=== PATIENT | female | born 1965 | race Caucasian/White ===

== ENCOUNTER 2018-11-07 10:02 | Emergency (ER) | payer SELFPAY ==
[2018-11-07] MEDS ORDERED: PROPOFOL 1,000 MG/100 ML INFUS..BTL IV ONE (10:18)
[2018-11-07] MEDS ORDERED: SUCCINYLCHOLINE CHLORIDE INJ 200 MG/10 ML VIAL IV ONE (10:22)
[2018-11-07] MEDS ORDERED: ETOMIDATE INJ/PF 20 MG/10 ML SDV IV ONE (10:22)
[2018-11-07] MEDS ORDERED: PROPOFOL 1,000 MG/100 ML INFUS..BTL IV PRN (10:23)
--- NOTE | 2018-11-07 11:04 | RADIOLOGY REPORT (SQ) ---
EXAM DESCRIPTION: CHEST SINGLE VIEW COMPLETED DATE/TIME: 11/07/2018 10:55 am REASON FOR STUDY: Post intubation COMPARISON: 2013 EXAM PARAMETERS: NUMBER OF VIEWS: One view TECHNIQUE: Single frontal radiograph of the chest. RADIATION DOSE: N/A LIMITATIONS: None. FINDINGS: TEMPORARY SUPPORT DEVICES:ETT in expected location. NG tube courses below the jered-diaphr agm in to the stomach. LUNGS AND PLEURA: No opacities. No masses. No effusions. No pneumothorax. MEDIASTINUM AND HILAR STRUCTURES: No masses. Contour normal. HEART AND VASCULAR STRUCTURES: Heart size normal. Normal vascularity. Aorta normal for age BONES: No acute findings. OTHER: No other significant finding. IMPRESSION: NO ACUTE RADIOGRAPHIC FINDING IN THE CHEST. SUPPORT DEVICE(S) IN EXPECTED LOCATIONS. TECHNICAL DOCUMENTATION: JOB ID: [id number] [employer]- All Rights Reserved Reading location - IP/workstation name: [email or web address]
[2018-11-07 11:26] LABS: ABSOLUTE BASOPHILS # (AUTO) 0.1 10^3/uL (0.0-0.2); ABSOLUTE EOSINOPHILS # (AUTO) 0.4 10^3/uL (0.0-0.6); ABSOLUTE LYMPHOCYTES (AUTO) 3.8 10^3/uL (0.5-4.7); ABSOLUTE NEUT (AUTO) 2.3 10^3/uL (1.7-8.2); EOSINOPHILS % (AUTO) 5.7 % (0-6); HEMOGLOBIN 15.4 g/dL (12.0-15.5); LYMPHOCYTES % (AUTO) 49.8 % (13-45); MEAN CORPUSCULAR HEMOGLOBIN 31.9 pg (27.0-33.4); MEAN CORPUSCULAR HGB CONC 33.4 g/dL (32.0-36.0); MEAN CORPUSCULAR VOLUME 96 fl (80-97); PLATELET COUNT 148 10^3/uL (150-450); RED BLOOD COUNT 4.81 10^6/uL (3.72-5.28); RED CELL DISTRIBUTION WIDTH 15.6 % (11.5-14.0); SEGMENTED NEUTROPHILS % (AUTO) 30.5 % (42-78); TOTAL CELLS COUNTED % (AUTO) 100 %; WHITE BLOOD COUNT 7.6 10^3/uL (4.0-10.5)
--- NOTE | 2018-11-07 11:27 | RADIOLOGY REPORT (SQ) ---
EXAM DESCRIPTION: CT HEAD WITHOUT COMPLETED DATE/TIME: 11/07/2018 11:15 am REASON FOR STUDY: Altered mental status COMPARISON: None. TECHNIQUE: Axial images acquired through the brain without intravenous contrast. Images reviewed wi th bone, brain and subdural windows. Additional sagittal and coronal reconstructions were generated. Images stored on PACS. All CT scanners at this facility use dose modulation, iterative reconstruction, and/or weight based d osing when appropriate to reduce radiation dose to as low as reasonably achievable (ALARA). [facility]: Dose Right [facility]: CareDose [facility]: Dose Right [facility]: Teradose 4D [facility]: [employer] RADIATION DOSE: CT Rad equipment meets quality standard of care and radiation dose reduction techniq ues were employed. CTDIvol: 53.2 mGy. DLP: 1097 mGy-cm. mGy. LIMITATIONS: None. FINDINGS: VENTRICLES: Normal size and contour. CEREBRUM: No masses. Diffuse subarachnoid hemorrhage throughout. There is an area of intra parenchy mal hemorrhage left insula. Measures 1 cm by 3 cm. No significant mass effect. No areas of low dens ity. CEREBELLUM: Diffuse subarachnoid hemorrhage. EXTRAAXIAL SPACES: Subarachnoid hemorrhage. ORBITS AND GLOBE: No intra- or extraconal masses. Normal contour of globe without masses. CALVARIUM: No fracture. PARANASAL SINUSES: No fluid or mucosal thickening. SOFT TISSUES: No mass or hematoma. OTHER: No other significant finding. IMPRESSION: Diffuse subarachnoid hemorrhage and parenchymal hemorrhage on the left. No mass effect. EVIDENCE OF ACUTE STROKE: NO. COMMENT: Pertinent findings on the imaging study reported as a CRITICAL RESULT to BASIA EVANS MD at11:17 on 11/07/2018. Category of Critical Result: Subarachnoid and parenchymal hemorrhage Quality ID # [id number]: Final reports with documentation of one or more dose reduction techniques (e.g., Au tomated exposure control, adjustment of the mA and/or kV according to patient size, use of iterative reconstruction technique) TECHNICAL DOCUMENTATION: JOB ID: [id number] [employer]- All Rights Reserved Reading location - IP/workstation name: [email or web address]
--- NOTE | 2018-11-07 11:28 | RADIOLOGY REPORT (SQ) ---
EXAM DESCRIPTION: CTA CHEST COMPLETED DATE/TIME: 11/07/2018 11:15 am REASON FOR STUDY: Intubated, difficulty oxygenating COMPARISON: Chest radiograph TECHNIQUE: CT scan of the chest performed using helical scanning technique with dynamic intravenous contrast injection. Images reviewed with lung, soft tissue and bone windows. Reconstructed coronal and sagittal MPR images reviewed. Additional 3 dimensional post-processing performed to develop Maximal Intensity Projection images (LA P). All images stored on PACS. All CT scanners at this facility use dose modulation, iterative reconstruction, and/or weight based d osing when appropriate to reduce radiation dose to as low as reasonably achievable (ALARA). [facility]: Dose Right [facility]: CareDose [facility]: Dose Right [facility]: Teradose 4D [facility]: [employer] CONTRAST TYPE AND DOSE: contrast/concentration: Isovue 350.00 mg/ml; Total Contrast Delivered: 90.0 ml; Total Saline Delivered: 110.0 ml Contrast bolus optimized for the pulmonary arteries. Not diagnostic for the aorta. RENAL FUNCTION: Emergent. Not performed. RADIATION DOSE: CT Rad equipment meets quality standard of care and radiation dose reduction techniq ues were employed. CTDIvol: 29.8 - 39.7 mGy. DLP: 1050 mGy-cm. . LIMITATIONS: None. FINDINGS: LUNGS AND PLEURA: Parenchymal opacities at both lung bases. Question aspiration complex. No pneumothorax. AORTA AND GREAT VESSELS: No aneurysm. Contrast bolus not optimized for the aorta. HEART: No pericardial effusion. No significant coronary artery calcifications. PULMONARY ARTERIES: No emboli visualized in the main pulmonary arteries or the segmental branches. HILAR AND MEDIASTINAL STRUCTURES: No identified masses or abnormal nodes. HARDWARE: ETT. NG tube. UPPER ABDOMEN: No significant findings. Limited exam. THYROID AND OTHER SOFT TISSUES: No masses. No adenopathy. BONES: No acute or significant finding. 3D MIPS: Confirm above findings. OTHER: No other significant finding. IMPRESSION: No pulmonary emboli. Parenchymal opacities at both lung bases. Question aspiration complex. COMMENT: Quality ID # [id number]: Final reports with documentation of one or more dose reduction techniques (e.g., Automated exposure control, adjustment of the mA and/or kV according to patient size, use of iterative reconstruction technique) TECHNICAL DOCUMENTATION: JOB ID: [id number] [employer]- All Rights Reserved Reading location - IP/workstation name: [email or web address]
[2018-11-07 11:33] LABS: ALANINE AMINOTRANSFERASE 51 U/L (9-52); ALBUMIN 4.6 g/dL (3.5-5.0); ALKALINE PHOSPHATASE 97 U/L (38-126); ANION GAP 13 (5-19); ASPARTATE AMINO TRANSFERASE 59 U/L (14-36); BILIRUBIN,DIRECT 0.3 mg/dL (0.0-0.4); BILIRUBIN,TOTAL 0.8 mg/dL (0.2-1.3); BLOOD UREA NITROGEN 17 mg/dL (7-20); CALCIUM 9.3 mg/dL (8.4-10.2); CARBON DIOXIDE 23 mmol/L (22-30); CHLORIDE 107 mmol/L (98-107); CREATINE KINASE 47 U/L (30-135); GLUCOSE 196 mg/dL (75-110); POTASSIUM 3.8 mmol/L (3.6-5.0); SODIUM 143.3 mmol/L (137-145); TOTAL PROTEIN 8.7 g/dL (6.3-8.2)
[2018-11-07] MEDS ORDERED: LEVOFLOXACIN 750 MG/D5W RTU 750 MG/150 ML RTUPB IV ONE (11:34)
[2018-11-07] MEDS ORDERED: NICARDIPINE HCL RTU, ISO-OS 20 MG/200 ML RTUINJ IV PRN (11:45)
[2018-11-07 11:49] LABS: TROPONIN I < 0.012 ng/mL
[2018-11-07 11:55] LABS: APPEARANCE,URINE CLEAR; BILIRUBIN,URINE NEGATIVE (NEGATIVE); COLOR,URINE STRAW; GLUCOSE, URINE 50 mg/dL (NEGATIVE); KETONES,URINE NEGATIVE (NEGATIVE); LEUKOCYTE ESTERASE,URINE NEGATIVE (NEGATIVE); NITRITE,URINE NEGATIVE (NEGATIVE); PROTEIN,URINE NEGATIVE (NEGATIVE); URINE SPECIFIC GRAVITY 1.039; UROBILINOGEN,URINE NEGATIVE mg/dL (<2.0)
[2018-11-07] MEDS ORDERED: LEVETIRACETAM 1000 MG/NACL-ISO 1,000 MG/100 ML RTUPB IV ONE (12:17)
[2018-11-07 13:11] VITALS: BP 112/65
--- NOTE | 2018-11-07 15:27 | ER Document Report ---
Entered by CHAVO MIXON SCRIBE 11/07/18 1031 Acting as scribe for:BASIA EVANS MD ED General - General Stated Complaint: ALTERED MENTAL STATUS Time Seen by Provider: 11/07/18 10:05 Primary Care Provider: MAULIK ANDERSEN MD [Primary Care Provider] - Follow up as needed Mode of Arrival: Medic Information source: Emergency Med Personnel Notes: Patient is a 53-year-old female with hypertension, lupus presents emergency department via EMS due to altered mental status. states he was drinking coffee with the patient when she proceeded to stand up and state " I don't feel right", fall over and proceeded to seize. states he caught the patient before she fell to the ground. No further history was obtained due to patient's mental status. EMS obtained a blood pressure 218/107. They administered 7.5 mg of Versed due to the patient's combativeness and inability to bag the patient. TRAVEL OUTSIDE OF THE [place] IN LAST 30 DAYS: No - Related Data Allergies/Adverse Reactions: Sulfa (Sulfonamide Antibiotics) Allergy (Verified 12/13/16 12:26) Past Medical History - General Information source: Emergency Med Personnel, [facility] Records - Social History Smoking Status: Current Every Day Smoker Cigarette use (# per day): Yes Family History: Reviewed & Not Pertinent - Past Medical History Cardiac Medical History: Reports: Hx Hypertension - STRESS INDUCED Musculoskeletal Medical History: Reports Hx Arthritis - HANDS, KNEES Psychiatric Medical History: Reports: Hx Depression Past Surgical History: Reports: Hx Section - Immunizations Hx Diphtheria, Pertussis, Tetanus Vaccination: Yes Review of Systems - Review of Systems -: Yes ROS unobtainable due to patient's medical condition Physical Exam - Vital signs Vitals: Resp 10 L 11/07/18 10:02 - Notes Notes: GENERAL: Moaning, continuously fights any kind of noxious stimuli, incoherent. HEAD: Normocephalic, atraumatic. EYES: Pupils reactive to light. Extraocular movements intact. ENT: Oral mucosa moist, tongue midline. NECK: Full range of motion. Supple. Trachea midline. LUNGS:Tachypneic. Clear to auscultation bilaterally, no wheezes, rales, or rhonchi. No respiratory distress. HEART: Regular rate and rhythm. No murmurs, gallops, or rubs. ABDOMEN: Soft,. Non-distended. Bowel sounds present in all 4 quadrants. EXTREMITIES: Moves all 4 extremities spontaneously. NEUROLOGICAL: Encephalopathic. Continuously fights any kind of noxious stimuli. Incoherent. PSYCH: Incoherent, encephalopathic. SKIN: Warm, dry. Course - Re-evaluation Re-evalutation: 11/07/18 15:07 Patient's oxygen saturations were in the 80% range. Were unable to get him abo ve 85%, due to the patient being quite combative and encephalopathic. Decision to do rapid sequence intubation was made. It was unsuccessful to adequately preoxygenated the patient, however after she received etomidate and succinylcholine, she was intubated with a Ramez blade laryngoscope and a 7.5 endotracheal tube. There was some blood and clots in the back of her throat and over the vocal cord region. The tongue was swollen some and appeared to have been bitten from her previous seizure. I was unable to identify any of the anatomy with a video laryngoscope so I switched to the Sloan blade. With direct laryngoscopy, I was able to identify what appeared to be the esophagus, but could not find the epiglottis or the vocal cords. I introduced the endotracheal tube just above the esophagus opening, and it slid forward easily and fog was seen coming up to. The stylette was removed, capnography was placed with good color change. Good bilateral breath sounds were heard. The endotracheal tube was secured, and then the patient was placed on a ventilator. The propofol drip was started. Once all this was stable, the patient was taken to the CT scanner. CT scan showed diffuse subarachnoid hemorrhage. There also appeared to be aspiration in the lower lung russell bilaterally. The patient's blood pressure settled down to about 155/93, at that point she was placed on a nicardipine drip to keep her pressures below 140 systolic. She was also given Keppra 1 g IV to prevent seizures, and Levaquin 750 mg IV for the aspiration. - Vital Signs Vital signs: Temp Pulse Resp BP Pulse Ox 18 112/65 94 11/07/18 12:41 11/07/18 12:41 11/07/18 12:54 - Laboratory Result Diagrams: 11/07/18 10:06 11/07/18 10:06 Laboratory results interpreted by me: 11/07/18 11/07/18 11/07/18 10:06 10:06 10:06 RDW 15.6 H Plt Count 148 L Seg Neutrophils % 30.5 L Lymphocytes % 49.8 H D-Dimer Creatinine 0.50 L Glucose 196 H Lactic Acid 2.6 H AST 59 H Total Protein 8.7 H Urine Glucose (UA) 11/07/18 11/07/18 10:06 11:33 RDW Plt Count Seg Neutrophils % Lymphocytes % D-Dimer 0.60 H Creatinine Glucose Lactic Acid AST Total Protein Urine Glucose (UA) 50 H - Diagnostic Test Radiology reviewed: Reports reviewed - Diffuse subarachnoid hemorrhage on CT of the head. CTA chest shows minimal opacities in both lung bases suggestive of aspiration. - EKG Interpretation by Me EKG shows normal: Sinus rhythm, [place], Intervals, QRS Complexes, ST-T Waves Rate: Normal - 87 Rhythm: NSR P Waves: LAE When compared to previous EKG there are: No significant change - Consults Dr. Jackson Time consulted: 11:39 Consulted provider: other - Will accept at [facility]. Procedures - Intubation Orotracheal Time of Intubation: 10:20 Airway evaluation: Large tongue, Poss. upper airway obst. Medications: Etomidate, Succinylcholine Intubation method: Orotracheal Blade type: Ramez Blade size: 4 ETT size: 7.5 ETT secured at: Teeth Breath Sounds after Intubation: Equal End tidal CO2 confirmed: Yes FiO2: 100 Post Intubation Xray: Yes Intubation Complications: No complications Critical Care Note - Critical Care Note Total time excluding time spent on procedures (mins): 45 Discharge - Discharge Clinical Impression: Subarachnoid hemorrhage Respiratory failure Qualifiers: Chronicity: acute Respiratory failure complication: hypoxia Qualified Code(s): J96.01 - Acute respiratory failure with hypoxia Aspiration into lower respiratory tract Qualifiers: Encounter type: initial encounter Qualified Code(s): T17.800A - Unspecified foreign body in other parts of respiratory tract causing asphyxiation, initial encounter Condition: Serious Disposition: [facility] Referrals: MAULIK ANDERSEN MD [Primary Care Provider] - Follow up as needed I personally performed the services described in the documentation, reviewed and edited the documentation which was dictated to the scribe in my presence, and it accurately records my words and actions.
--- NOTE | 2018-11-07 17:13 | EKG REPORT ---
SEVERITY:- BORDERLINE ECG - SINUS RHYTHM PROBABLE LEFT ATRIAL ABNORMALITY : Confirmed by: Gabe Peres MD 07-Nov-2018 17:12:57
== END 2018-11-07 13:13 | disposition short-term general hospital (02) ==
LOC: ER 10:02
DX: I60.9 Nontraumatic subarachnoid hemorrhage, unspecified (principal); R41.82 Altered mental status, unspecified; I10 Essential (primary) hypertension; T17.900A Unspecified foreign body in respiratory tract, part unspecified causing asphyxiation, initial encounter; X58.XXXA Exposure to other specified factors, initial encounter; J96.01 Acute respiratory failure with hypoxia; R56.9 Unspecified convulsions; F17.210 Nicotine dependence, cigarettes, uncomplicated; Z88.2 Allergy status to sulfonamides
CPT/HCPCS: 93005; 99291; 51702; 96375; 96365; 96368; 36415; 87040; 82553; 82550; 85025; 80053; 81001; 84484; 85379; 83605; 71045; 70450; 71275; 94660; 93010; 31500; J2704; J0330; J3490 ×2; J1956; J1953